=== PATIENT | female | born 1990 | race African-American/Black ===

== ENCOUNTER 2019-02-20 19:20 | Emergency (ER) | payer MEDICAID ==
[~2019-02-20] VITALS: Ht 165.1 cm; Wt 64.0 kg
[2019-02-20] MEDS ORDERED: FLUORESCEIN SODIUM 1MG/STRIP LEFTEYE ONE (22:30)
[2019-02-20] MEDS ORDERED: TETRACAINE 0.5% OPHTH DROPS 4ML OP ONE (22:30)
[2019-02-20] MEDS ORDERED: TRAMADOL 50MG TABLET PO ONE (22:45)
[2019-02-20 23:12] VITALS: BP 115/72
== END 2019-02-20 23:14 | disposition home or self-care (01) ==
LOC: ER 19:20
DX: S00.12XA Contusion of left eyelid and periocular area, initial encounter (principal); Z91.041 Radiographic dye allergy status; Z91.013 Allergy to seafood; Z98.890 Other specified postprocedural states; Y04.0XXA Assault by unarmed brawl or fight, initial encounter; Y93.89 Activity, other specified; Y92.018 Other place in single-family (private) house as the place of occurrence of the external cause
CPT/HCPCS: 99284

== ENCOUNTER 2023-04-11 17:10 | Emergency (ER) | payer MEDICAID ==
[~2023-04-11] VITALS: Ht 165.1 cm; Wt 70.0 kg
[2023-04-11 17:27] VITALS: BP 114/69; PULSE 71; RESP 18; TEMP 98.8; O2SAT 95
== END 2023-04-11 21:01 | disposition left against medical advice (07) ==
LOC: ER 17:10
DX: Z53.21 Procedure and treatment not carried out due to patient leaving prior to being seen by health care provider (principal)
CPT/HCPCS: 99281